=== PATIENT | female | born 2000 | race Caucasian/White ===

== ENCOUNTER 2022-06-17 15:07 | Emergency (ER) | payer MEDICAID, SELFPAY ==
[2022-06-17 15:10] VITALS: BP 116/82; PULSE 98; RESP 16; TEMP 36.5; O2SAT 98
--- NOTE | 2022-06-17 15:38 | USR_ITS ---
PROCEDURE INFORMATION: Exam: US First Trimester, Transabdominal and US , Transvaginal Exam date and time: 06/17/2022 4:19 PM Age: 22 years old Clinical indication: Lmp or gestational age (in weeks): Patient states 11w5d by US 8w0d; Antepartum complications; Bleeding; ; Additional info: Vaginal bleeding in early LABS AND CLINICAL REPORTS: Last menstrual period start date: 03/27/2022 Gestational age (Established): 11 w 5 d Estimated due date (Established): 01/01/2023 TECHNIQUE: Imaging protocol: Real-time transabdominal obstetrical ultrasound of the maternal pelvis and a first trimester , less than 14 weeks 0 days, with image documentation. Transvaginal imaging was used for better evaluation of the fetus, adnexa, and/or cervix. COMPARISON: No relevant prior studies available. FINDINGS: Gestation: There is an intrauterine gestational sac/fetus. Embryonic/ heart rate: No heart tones detected. No movement seen during the acquisition of these images Extra-embryonic membranes/Placenta: Unremarkable. No subchorionic bleed. Amniotic fluid: Amniotic fluid and extra-amniotic fluid is normal for gestational age. BIOMETRY: Gestational age (AUA): 8 w 0 d Mean sac diameter: 3.3 cm. Henlawson-Rump length (CRL): 14.7 mm. EGA (CRL) is 8 w 0 d MATERNAL: Uterus: Unremarkable. Cervix: Cervical length measures 3 cm. Right ovary/adnexa: Unremarkable ovary. Left ovary/adnexa: Unremarkable ovary. Intraperitoneal space: No intraperitoneal free fluid. US/US OB <= 14 weeks fetus [id number] IMPRESSION: Single intrauterine fetus with a crown-rump length of 14.7 mm and EGA of 8 weeks and 0 days. No heart tones were detected. This is consistent with a nonviable .
--- NOTE | 2022-06-17 16:12 | ED_ITS ---
HPI - General: Chief complaint: Vaginal Bleeding Stated complaint: 11 weeks and bleeding Time Seen by Provider: 06/17/22 15:35 History of Present Illness: 22-year-old female G1, P0 Ab0 presents emergency department chief complaint of vaginal spotting and bleeding this been p rogressive getting worse for last 2 to 3 days patient does not report having any cramping or any abdominal or pelvic pain. Patient reports she has not established care with an certified endoscopy technician in which she rescheduled appointment first appointment is on 22 June patient reports having no other associate symptoms does not report have any back pain or flank pain reports no dysuria Associated symptoms: Deny abdominal pain, headache(s), malaise, nausea or vomiting Review of Systems General: Reports: 10 or more systems reviewed and unremarkable except in HPI and below Const: Denies: fever(s), chills, fatigue or malaise Eyes: Denies: change in vision or blurry vision Card: Denies: chest pain or palpitations Resp: Denies: dyspnea or productive cough GI: Denies: abdominal pain, nausea or vomiting : Reports: vaginal bleeding Musc: Denies: extremity pain or extremity swelling Skin/Breast: Denies: rash or pruritus Neuro: Denies: headache(s) Psych: Denies: anxiety or depression Jorge A/Lymph: Denies: easy bleeding All/Imm: Denies: urticaria, throat swelling or facial swelling Physical Exam Const: COMMON NORMALS: no acute distress (Patient appears very anxious on exam however appears in no obvious acute di), patient oriented x3 and healthy appearing HENMT: COMMON NORMALS: normocephalic and atraumatic HEAD & SCALP: normocephalic and atraumatic Eye: COMMON NORMALS: Equal, round and reactive pupils present and EOMs intact bilaterally PUPIL: Yes Equal, round and reactive pupils present Neck/C-Spine: COMMON NORMALS: full ROM, supple and no JVD Lymph: LYMPHATIC: no lymphadenopathy noted Chest: COMMONS NORMALS: normal inspection of the chest and normal palpation of entire chest wall Resp: COMMON NORMALS: normal respiratory effort, No retractions and clear to auscultation bilaterally EFFORT & INSPECTION: Yes able to speak in complete sentences and Yes symmetric chest movement AUSCULTATION: clear to auscultation bilaterally Cardio: COMMON NORMALS: no JVD, regular rate and regular rhythm RATE: regular rate RHYTHM: regular rhythm GI: COMMON NORMALS: Normal to inspection, nondistended, normoactive bowel sounds present, Soft to palpation and non-tender INSPECTION: Yes normal to inspection PALPATION: Yes Soft to palpation : COMMON NORMALS: Yes no CVA tenderness BLADDER/KIDNEY EXAM: Yes no CVA tenderness Back/Pelvis: COMMON NORMALS: no CVA tenderness Extremity: COMMON NORMALS: normal to inspection and full ROM Neuro: COMMON NORMALS: patient oriented x3, CN's II-XII intact bilaterally, moves all extremities and no focal motor deficits Psych: COMMON NORMALS: mental status grossly normal, Normal thought process present, cooperative and normal affect THOUGHT PROCESS: Normal thought process present Skin: COMMON NORMALS: no rashes or lesions noted GENERAL SKIN EXAM: no rashes or lesions noted Course Vital Signs: Vital signs: Vital Signs Temperature 97.7 F 06/17/22 15:10 Pulse Rate 98 06/17/22 15:10 Respiratory Rate 16 06/17/22 15:10 Blood Pressure 116/82 06/17/22 15:10 Pulse Oximetry 98 06/17/22 15:10 Oxygen Delivery Me thod 06/17/22 15:10 MDM - OB/Uterine Contractions Medical Decision Making Patient this time is declining a pelvic exam unless there is any female or alternative person to do the exam mother and patient do agree to pelvic ultrasound at this time and basic lab work will continue to follow patient appears no obvious acute distress, concerns of miscarriage versus early vaginal bleeding in are prominent will continue to follow Patient's lab work revealed Datril 89 weeks the ultrasound did not reveal any obvious cardiac activity discussed patient's case with patient and mother and significant other present which patient appears to be having early onset of a miscarriage is there is no heartbeat advised that they would need to further promptly follow-up outpatient with her certified endoscopy technician on Sunday for further assessment and management I did advise the patient would have some continued bleeding however if it was worse than 2 pads an hour where she developed a additional abdominal cramping or pain to return immediately for further assessment management additionally patient was advised to continue with strict pelvic rest until seen by her certified endoscopy technician advised to return the interim if any of her symptoms persist or worse. Lab Data 06/17/22 16:03 06/17/22 16:03 Radiology Impressions Ultrasound 06/17/22 15:38 IMPRESSION: Single intrauterine fetus with a crown-rump length of 14.7 mm and EGA of 8 weeks and 0 days. No heart tones were detected. This is consistent with a nonviable . ADDENDUM: 06/17/221751 CRITICAL RESULT: The study was personally discussed on the telephone with ALBERT Ernandez on 06/17/2022 5:51 PM [employer]ING [employer]. The results were understood and acknowledged. Laboratory Results WBC 9.2 10^3/uL (4.0-10.0) 06/17/22 16:03 RBC 4.41 10^6/uL (4.1-5.3) 06/17/22 16:03 Hgb 13.6 g/dL (11.5-15.3) 06/17/22 16:03 Hct 39.8 % (37.0-47.0) 06/17/22 16:03 MCV 90.2 fl (81-99) 06/17/22 16:03 MCH 30.8 pg (28.0-34.0) 06/17/22 16:03 MCHC 34.2 g/dL (30.0-36.0) 06/17/22 16:03 RDW 12.6 % (12.1-15.1) 06/17/22 16:03 Plt Count 206 10^3/cmm (130-400) 06/17/22 16:03 MPV 11.1 fL (7.4-10.4) H 06/17/22 16:03 Neut % (Auto) 66.0 % 06/17/22 16:03 Lymph % (Auto) 25.4 % 06/17/22 16:03 [place] % (Auto) 6.1 % 06/17/22 16:03 Eos % (Auto) 2.1 % 06/17/22 16:03 Baso % (Auto) 0.1 % 06/17/22 16:03 Neut # (Auto) 6.04 10^3/uL (1.8-7.7) 06/17/22 16:03 Lymph # (Auto) 2.3 10^3/uL (0.8-4.8) 06/17/22 16:03 [place] # (Auto) 0.6 10^3/uL (0.2-0.9) 06/17/22 16:03 Eos # (Auto) 0.2 10^3/uL (0.0-0.8) 06/17/22 16:03 Baso # (Auto) 0.0 10^3/uL (0.0-0.1) 06/17/22 16:03 Nucleated RBC % (auto) 0 % 06/17/22 16:03 Nucleated RBCs # 0.0 /100WBC 06/17/22 16:03 Sodium 138 mmol/L (136-145) 06/17/22 16:03 Potassium 3.8 mmol/L (3.5-5.1) 06/17/22 16:03 Chloride 103 mmol/L (98-107) 06/17/22 16:03 Carbon Dioxide 23 mmol/L (22-29) 06/17/22 16:03 Anion Gap 15.8 (5-19) 06/17/22 16:03 BUN 8 mg/dL (6-20) 06/17/22 16:03 Creatinine 0.4 mg/dL (0.5-0.9) L 06/17/22 16:03 GFR Calculation 201.5 mL/min (90-130) H 06/17/22 16:03 Glucose 84 mg/dL (65-115) 06/17/22 16:03 Calculated Osmolality 284 mOsm/kg (285-295) L 06/17/22 16:03 Calcium 9.7 mg/dL (8.5-10.5) 06/17/22 16:03 Total Bilirubin 0.2 mg/dL (0.15-1.2) 06/17/22 16:03 AST 13 U/L (0-32) 06/17/22 16:03 ALT 10 U/L (0-33) 06/17/22 16:03 Alkaline Phosphatase 38 U/L (35-105) 06/17/22 16:03 Total Protein 7.3 g/dL (6.6-8.7) 06/17/22 16:03 Albumin 4.6 g/dL (3.5-5.2) 06/17/22 16:03 Globulin 2.7 g/dL (1.3-4.6) 06/17/22 16:03 Ser , Semi-Qnt 77451.00 mIU/mL 06/17/22 16:03 Blood Type A Positive 06/17/22 16:03 Rho(D) Type Positive 06/17/22 16:03 Discharge Plan Discharge Patient Disposition: Home Clinical Impression: Vaginal bleeding, Threatened miscarriage in early Condition: Stable Discharge Orders: Discharge ED (Routine); Ordered 06/17/22 Ordered By: Albert Benoit Referrals: Ashley Simon DO [Physician] - 1-3 days (If you are unable to contact your TIP MENDER for further assessment and management) Discharge Activity: Increase activity as tolerated Patient Instructions: Miscarriage (ED), Threatened Miscarriage (ED) Activity Restrictions/Additional Instructions: Strict pelvic rest please contact your TIP MENDER or the 1 provided above on Sunday for further assessment management for repeat lab work and imaging. Please return to the ER if you start bleeding more than 2 pads an hour or have increased abdominal pain or discomfort or any additional concerns or found. Coding Level of Care Code ED Community Service Organization Director for Chg Fwd Exam Comprehensive
[2022-06-17 16:15] LABS: Basophils % 0.1 %; Eosinophils # 0.2 10^3/uL (0.0-0.8); Eosinophils % 2.1 %; Hematocrit 39.8 % (37.0-47.0); Hemoglobin 13.6 g/dL (11.5-15.3); Lymphocytes # 2.3 10^3/uL (0.8-4.8); Lymphocytes % 25.4 %; Mean Corpuscular HGB Conc 34.2 g/dL (30.0-36.0); Mean Corpuscular Hemoglobin 30.8 pg (28.0-34.0); Mean Corpuscular Volume 90.2 fl (81-99); Mean Platelet Volume 11.1 fL (7.4-10.4); Monocytes # 0.6 10^3/uL (0.2-0.9); Monocytes % 6.1 %; Neutrophils # 6.04 10^3/uL (1.8-7.7); Nucleated Red Blood Cells % 0 %; Platelet Count 206 10^3/cmm (130-400); Red Blood Count 4.41 10^6/uL (4.1-5.3); Red Cell Distribution Width 12.6 % (12.1-15.1); White Blood Count 9.2 10^3/uL (4.0-10.0)
[2022-06-17 16:52] LABS: Alanine Aminotransferase 10 U/L (0-33); Albumin Level 4.6 g/dL (3.5-5.2); Alkaline Phosphatase 38 U/L (35-105); Anion Gap 15.8 (5-19); Aspartate Amino Transferase 13 U/L (0-32); Blood Urea Nitrogen 8 mg/dL (6-20); Calcium 9.7 mg/dL (8.5-10.5); Carbon Dioxide 23 mmol/L (22-29); Chloride 103 mmol/L (98-107); Globulin 2.7 g/dL (1.3-4.6); Glomerular Filtration Rate 201.5 mL/min (90-130); Glucose 84 mg/dL (65-115); Osmolality Calculated 284 mOsm/kg (285-295); Potassium 3.8 mmol/L (3.5-5.1); Sodium 138 mmol/L (136-145); Total Bilirubin 0.2 mg/dL (0.15-1.2); Total Protein 7.3 g/dL (6.6-8.7)
== END 2022-06-17 18:25 | disposition home or self-care (01) ==
PROVIDERS: Emergency Provider Emergency Medicine
DX: O20.0 Threatened abortion (principal); Z3A.11 11 weeks gestation of pregnancy
CPT/HCPCS: 76801; 80053; 84702; 85025; 86900; 99284